=== PATIENT | male | born 1980 | race Caucasian/White ===

== ENCOUNTER 2020-02-15 14:55 | Emergency (ER) | payer SELFPAY ==
[~2020-02-15] VITALS: Ht 165.1 cm; Wt 86.2 kg
[2020-02-15] MEDS ORDERED: ACETAMINOPHEN ES 500 MG TABLET PO ONE (15:15)
[2020-02-15] MEDS ORDERED: ONDANSETRON ODT 4 MG TAB.RAPDIS SL ONE (15:15)
[2020-02-15] MEDS ORDERED: ONDANSETRON ODT 4 MG TAB.RAPDIS ONE (15:29)
[2020-02-15] MEDS ORDERED: ACETAMINOPHEN ES 500 MG TABLET ONE (15:29)
--- NOTE | 2020-02-15 16:52 | NUR ---
Patient discharged to home in stable condition. Written and verbal after care instructions given. Patient verbalizes understanding of instructions. Stressed follow up or return to ER for worsening s/s.
== END 2020-02-15 16:53 | disposition home or self-care (01) ==
LOC: ER 14:57
DX: S09.90XA Unspecified injury of head, initial encounter (principal); S16.1XXA Strain of muscle, fascia and tendon at neck level, initial encounter; S29.012A Strain of muscle and tendon of back wall of thorax, initial encounter; S39.012A Strain of muscle, fascia and tendon of lower back, initial encounter; V43.52XA Car driver injured in collision with other type car in traffic accident, initial encounter; Y92.410 Unspecified street and highway as the place of occurrence of the external cause; R51 Headache; M50.30 Other cervical disc degeneration, unspecified cervical region
CPT/HCPCS: 70450; 72072; 72100; 72125; A4663; A9150; Q0162